=== PATIENT | male | born 1990 | race Caucasian/White ===

== ENCOUNTER 2017-11-24 19:16 | Emergency (ER) | payer OTHER ==
[~2017-11-24] VITALS: Ht 180.3 cm; Wt 156.5 kg
[~2017-11-24 19:16] MED LIST: CARISOPRODOL 3350 MG PO; IBUPROFEN 800800 MG PO; NOHOMEMEDICATIONS; NORCO 5-325 TA1 EACH PO; ULTRAM 50MG TAB50 MG PO
[2017-11-24] MEDS ORDERED: PROZAC20 MG PO (19:23)
[2017-11-24] MEDS ORDERED: ATIVAN1 MG PO (19:24)
[2017-11-24] MEDS ORDERED: CIPROFLOXIN HC2.5 M1 OTIC (19:44)
[2017-11-24 20:03] VITALS: BP 155/57
== END 2017-11-24 20:04 | disposition home or self-care (01) ==
LOC: M.ERS 19:16
DX: H57.8 Other specified disorders of eye and adnexa (principal); Z88.1 Allergy status to other antibiotic agents

== ENCOUNTER 2018-05-17 19:04 | Emergency (ER) | payer OTHER ==
[~2018-05-17] VITALS: Ht 182.9 cm; Wt 149.7 kg
[~2018-05-17 19:04] MED LIST changes: +ATIVAN1 MG PO; +CIPROFLOXIN HC2.5 M1 OTIC; +PROZAC20 MG PO
[2018-05-17] MEDS ORDERED: NORCO 7.5-3251 EACH PO (19:14)
[2018-05-17] MEDS ORDERED: FLEXERIL PO (19:14)
[2018-05-17] MEDS ORDERED: NORFLEX100 MG PO (20:10)
[2018-05-17] MEDS ORDERED: PREDNISONE 10 M10 M1 PO (20:10)
[2018-05-17 20:25] VITALS: BP 133/60
== END 2018-05-17 20:27 | disposition home or self-care (01) ==
LOC: M.ERS 19:04
DX: M54.5 Low back pain (principal); Z88.1 Allergy status to other antibiotic agents